=== PATIENT | female | born 1980 | race Caucasian/White ===

== ENCOUNTER → 2019-12-31 | Outpatient (CLI) | payer OTHER | LOC: COL.LAB 13:34 | DX: Z20.828 Contact with and (suspected) exposure to other viral communicable diseases (principal) ==

== ENCOUNTER 2021-01-13 03:02 | Emergency (ER) | payer SELFPAY ==
[2021-01-13 03:04] VITALS: TEMP 98.2
[2021-01-13 10:49] VITALS: BP 116/85; PULSE 101
== END 2021-01-13 10:57 | disposition home or self-care (01) ==
LOC: COL.ER 03:02
DX: F10.129 Alcohol abuse with intoxication, unspecified (principal)

== ENCOUNTER → 2022-02-28 | Outpatient (CLI) | payer SELFPAY | LOC: MC.RAD 09:05 | DX: Z12.31 Encounter for screening mammogram for malignant neoplasm of breast (principal) ==